=== PATIENT | male | born 1950 | race Caucasian/White ===

== ENCOUNTER 2016-10-20 10:16 | Day surgery (SDC) | payer MEDICARE, OTHER ==
[2016-10-16 15:30] VITALS: BMI 27.8
[~2016-10-20 10:16] MED LIST: LACTATED RINGERS 1,000 ML IV SCH
[2016-10-20 11:12] VITALS: RESP 18; TEMP 97.6
[2016-10-20] MEDS ORDERED: LACTATED RINGERS 1,000 ML IV ONE (11:12)
[2016-10-20] MEDS ORDERED: LIDOCAINE 1% 20 ML VIAL (10MG/ML) FOR IV START INTRADERMA ONE (11:12)
[2016-10-20] MEDS ORDERED: GLYCOPYRROLATE 0.2 MG/ML 2 ML VIAL ONE (11:41)
[2016-10-20] MEDS ORDERED: PROPOFOL 10 MG/ML 20 ML VIAL IV ONE (11:41)
[2016-10-20] MEDS ORDERED: LIDOCAINE 1% INJ 10MG/ML (20 ML MDV) ONE (11:41)
--- NOTE | 2016-10-20 12:07 | P.PCN ---
Date of Procedure: 10/20/16 Procedure(s) Performed: Brief history: Patient is a pleasant 66-year-old white male, scheduled for an elective upper endoscopy as well as colonoscopy as a part of evaluation of intermittent dysphagia to solids for the last several months duration. Also has prior history of colon polyps and hence he scheduled for a surveillance colonoscopy today. His last colonoscopy was in 2010. Procedure performed: Esophagogastroduodenoscopy with biopsy Colonoscopy Preoperative diagnosis: Intermittent dysphagia to solids Prior history of colon polyps Anesthesia: MAC Procedure: After informed consent was obtained from the patient was brought into the endoscopy unit and IV conscious sedation was administered by anesthesia under continuous monitoring. Initially upper endoscopy was done. The Olympus GF 160 video endoscope was inserted inserted into the mouth and esophagus intubated without any difficulty and was gradually advanced into the stomach and duodenum and carefully examined. The bulb and second part of the duodenum appeared normal. The scope was then withdrawn into the stomach adequately insufflated with air and upon careful examination the antrum had mild gastritis and biopsies were done from this area. The body, cardia and fundus appeared normal. The scope was then withdrawn into the esophagus. The GE junction was located at 40 cm to the incisors. It appeared rewith circumferential erythema and couple of erosions with one ulceration consistent with LA grade B reflux esophagitis. Rest of the esophagus appeared normal. Patient tolerated the procedure well. At this time the patient continued to remain sedation. Initial digital rectal examination was normal. Olympus CF 160 video colonoscope was then inserted into the rectum and gradually advanced to the cecum without any difficulty. Careful examination was performed as the scope was gradually being withdrawn. The prep was excellent. The cecum, ascending colon, transverse colon, descending colon, sigmoid colon and rectum appeared normal. Retroflexion was performed in the rectum and no lesions were noted. scattered sigmoid diverticulosis seen. Patient tolerated the procedure well. Impression: 1.Upper endoscopy revealed LA grade B reflux esophagitis, but no evidence of esophageal stricture. 2.Colonoscopy revealed scattered sigmoid diverticulosis but no evidence of colitis or colorectal neoplasia Recommendations: Findings of this examination were discussed with the patient as well ashis family. He was advised to follow with the biopsy results. He will be given a prescription for Prilosec 20 mg daily for reflux disease and he was briefly educated about antireflux measures. He can have a repeat surveillance colonoscopy in 5 years.
[2016-10-20 12:32] VITALS: BP 135/76; PULSE 56
== END 2016-10-20 13:16 | disposition home or self-care (01) ==
LOC: ORWHC2ENDO 10:16
PROVIDERS: ATTEND Internal Medicine Gastroenterology
DX: Z12.11 Encounter for screening for malignant neoplasm of colon (principal); Z86.010 Personal history of colon polyps; R13.10 Dysphagia, unspecified; K21.0 Gastro-esophageal reflux disease with esophagitis; K22.10 Ulcer of esophagus without bleeding; K57.30 Diverticulosis of large intestine without perforation or abscess without bleeding; K29.50 Unspecified chronic gastritis without bleeding; E78.5 Hyperlipidemia, unspecified; Z79.899 Other long term (current) drug therapy
CPT/HCPCS: 88305; 88342; 43239; J2001; J2704; G0105; 99153

== ENCOUNTER 2019-03-09 20:19 | Emergency (ER) | payer MEDICARE, OTHER ==
--- NOTE | 2019-03-09 20:49 | ED ---
Fall HPI - General Chief Complaint: Fall Stated Complaint: Fall Time Seen by Provider: 03/09/19 20:27 Source: patient Mode of arrival: ambulatory - History of Present Illness Initial Comments: 69-year-old male patient presents to the emergency department today for evaluation of right-sided chest wall pain after experiencing a fall. Patient states approximate hour half ago was playing Frisbee with his grandson when he fell forward landing on the right shoulder. Patient states he heard crunching in the right side of his chest and now has pain along the right sternal border a nd over the right lateral ribs. States the pain in his chest does increase when he takes a deep breath but denies any shortness of breath. Denies any hemoptysis. Patient states he is also having discomfort to the left hip. Denies any pain radiating down the leg. Denies any numbness or tingling to the extremities. Patient denies hitting his head or losing consciousness during the fall. Denies any neck or back pain. Patient denies any headache, chest pain, shortness of breath, dizziness, weakness, abdominal pain, nausea, vomiting, or difficulties with bowel movements or urination. - Related Data Home Medications Medication Instructions Recorded Confirmed Aspirin [Adult Low Dose Aspirin EC] 81 mg PO DAILY 10/16/16 10/16/16 Folic Acid (Unknown Dose) 1 tab PO DAILY 10/16/16 10/20/16 [place] 3 (Unknown Dose) 1 cap PO DAILY 10/16/16 10/20/16 Simvastatin [Zocor] 20 mg PO HS 10/16/16 10/20/16 Vitamin D 3 (Unknown Dose) 1 tab PO DAILY 10/16/16 10/20/16 Previous Rx's Medication Instructions Recorded Hydrocodone/Acetaminophen [Douglas 1 tab PO Q6HR PRN #12 tab 03/09/19 5-325] Ketorolac [Toradol] 10 mg PO Q6HR #12 tab 03/09/19 Lidocaine 5% Patch [Lidoderm] 1 patch TOPICAL DAILY #5 patch 03/09/19 Allergies Allergy/AdvReac Type Severity Reaction Status Date / Time No Known Allergies Allergy Verified 03/09/19 20:26 Review of Systems ROS Statement: Those systems with pertinent positive or pertinent negative responses have been documented in the HPI. ROS Other: All systems not noted in ROS Statement are negative. Past Medical History Past Medical History: Chest Pain / Angina, GERD/Reflux, Hyperlipidemia History of Any Multi-Drug Resistant Organisms: None Reported Past Surgical History: Heart Catheterization, Hernia Repair Additional Past Surgical History / Comment(s): MODIFIED TURP. , CATARACTS, COLONOSCOPY. Past Anesthesia/Blood Transfusion Reactions: No Reported Reaction Past Psychological History: No Psychological Hx Reported Smoking Status: Never smoker Past Alcohol Use History: Daily Past Drug Use History: None Reported - Past Family History Mother Family Medical History: Cancer Additional Family Medical History / Comment(s): UTERINE CA Brother(s) Family Medical History: Cancer Additional Family Medical History / Comment(s): PROSTATE CA General Exam Limitations: no limitations General appearance: alert, in no apparent distress, other (Physical well- developed, well-nourished elderly male patient in no acute distress. Vital signs upon presentation are temperature 97.6F, pulse 75, respirations 16, blood pressure 163/90, pulse ox 97% on room air.) Head exam: Present: atraumatic, normocephalic, normal inspection Eye exam: Present: normal appearance, PERRL, EOMI. Absent: scleral icterus, conjunctival injection, periorbital swelling ENT exam: Present: normal exam, normal oropharynx, mucous membranes moist Neck exam: Present: normal inspection, full ROM, other (Nontender, no step-off, no deformity to firm midline palpation of the posterior cervical spine. Full range of motion without pain or limitation.). Absent: tenderness, meningismus, lymphadenopathy Respiratory exam: Present: normal lung sounds bilaterally. Absent: respiratory distress, wheezes, rales, rhonchi, stridor Cardiovascular Exam: Present: regular rate, normal rhythm, normal heart sounds. Absent: systolic murmur, diastolic murmur, rubs, gallop, clicks GI/Abdominal exam: Present: soft, normal bowel sounds. Absent: distended, tenderness, guarding, rebound, rigid Extremities exam: Present: normal inspection, full ROM, normal capillary refill, other (Skin to the lower extremities is pink, warm, and dry. Cap refills less than 3 seconds. Pedal and posttibial pulses are 2+ and equal bilaterally.). Absent: tenderness, pedal edema, joint swelling, calf tenderness Back exam: Present: normal inspection, other (Nontender, no step-off, no deformity to firm midline palpation of the thoracic and lumbar vertebrae. Full range of motion without pain or limitation.). Absent: vertebral tenderness Neurological exam: Present: alert, oriented X3, CN II-XII intact Psychiatric exam: Present: normal affect, normal mood Skin exam: Present: warm, dry, intact, normal color. Absent: rash Course Vital Signs 03/09/19 03/09/19 20:24 21:52 Temperature 97.6 F 99.1 F Pulse Rate 75 71 Respiratory 16 18 Rate Blood Pressure 163/90 155/97 O2 Sat by Pulse 97 97 Oximetry Medical Decision Making - Medical Decision Making 69-year-old male patient presents the emergency department today for evaluation of right rib pain and pain at the right sternal border after experiencing a fall while playing Frisbee with his grandchildren. Patient is also reporting discomfort to the left hip however he is able to ambulate. Physical examination did reveal right sternal border tenderness and right lateral rib tenderness. Lungs are clear to auscultation with good air movement. Neurovascular status is intact to the lower extremities. X-rays of the right ribs and one view of the chest was obtained and showed subtle nondisplaced fractures of ribs #7 and 8. X-ray of the left hip and pelvis was obtained and showed no acute fractures or dislocations however did reveal a sclerotic lesion to the left pubic bone. I did discuss these findings and results with the patient. We did discuss splinting, coughing, deep breathing with the rib fractures. We discussed risk of pneumonia. I did inform patient of the sclerotic lesion on the pelvic bone, he is instructed to follow-up with his primary care physician for further evaluation of this lesion. He was given medications for pain control. He is instructed to follow-up with his primary care physician for recheck in 1-2 days. Return parameters were discussed in detail. He verbalizes understanding and agrees with this plan - Radiology Data Radiology results: report reviewed, image reviewed Single view of the pelvis and 2 views of left hip are obtained. Report was reviewed in its entirety. Impression by Dr. Chung shows no fracture dislocation the pelvis or left hip. Sclerotic lesion of the left pubic bone that is concerning for metastasis given his large evaluated margins. Correlate with PSA and nuclear medicine bone scan is alternatively this could represent an atypical bone island. Right rib and chest x-rays obtained. Report was reviewed in its entirety. Impression by Dr. Chung shows subtle nondisplaced fracture of the anterior lateral margin of rib 8 on the right and 7 on the right. Otherwise no acute cardiopulmonary process. Disposition Clinical Impression: Right rib fracture, Lesion of pelvic bone Disposition: HOME SELF-CARE Condition: Good Instructions (If sedation given, give patient instructions): How to Use an Incentive Spirometer (ED), Rib Fracture (ED) Additional Instructions: Splint ribs with pillow for coughing and deep breathing. Use incentive spirometer 10 times an hour while awake. Take medication as directed. Follow-up with your primary care physician for recheck in 1-2 days. Discuss abnormal pelvic xray findings, abnormal lesion to the pelvic bone. Return to the emergency department immediately for any new, worsening, or concerning symptoms. Prescriptions: Lidocaine 5% Patch [Lidoderm] 1 patch TOPICAL DAILY #5 patch Hydrocodone/Acetaminophen [Douglas 5-325] 1 tab PO Q6HR PRN #12 tab PRN Reason: Pain Ketorolac [Toradol] 10 mg PO Q6HR #12 tab Is patient prescribed a controlled substance at d/c from ED?: Yes When asked, does pt state using other controlled substances?: No If prescribed controlled substance>3 days was MAPS reviewed?: Prescribed <3 Days If opioid is for acute pain is fill amount 7 days or less?: Yes If Rx opioid, was Start Talking consent form obtained?: Yes [facility]errals[facility] [Primary Care Provider] - 1-2 days Time of Disposition: 21:30
--- NOTE | 2019-03-09 20:56 | XR ---
EXAMINATION TYPE: XR Hip LT and AP Pelvis DATE OF EXAM: 03/09/2019 COMPARISON: NONE HISTORY: Left hip pain and pelvic pain after fall TECHNIQUE: A single AP view of the pelvis is obtained. Two views of the left hip are obtained. FINDINGS: There is no acute fracture/dislocation evident in the pelvis. The hip and sacroiliac join ts appear symmetric and unremarkable. The overlying soft tissue appears unremarkable. Two views of left hip show no acute fracture or dislocation. No focal lytic or sclerotic lesion seen in the proximal left femur. The overlying soft tissue is unremarkable. There is a lobulated lesion that is sclerotic of the left pubic bone measuring 2 cm. There is a levoscoliosis of the lower lumba r and lumbosacral spine partially visualized. IMPRESSION: 1. No acute fracture or dislocation in the pelvis or left hip. 2. Sclerotic lesion of the left pubic bone that is concerning for metastasis given its large evaluate d margins. Correlate with PSA and nuclear medicine bone scan as alternatively this could represent an atypical bone island.
--- NOTE | 2019-03-09 20:57 | XR ---
EXAMINATION TYPE: XR ribs RT w pa chest xray DATE OF EXAM: 03/09/2019 CLINICAL HISTORY: Right rib and chest pain after fall TECHNIQUE: Single frontal view of the chest is obtained. Frontal and oblique views of the right ribs were also obtained. COMPARISON: 06/17/2016 FINDINGS: There is no focal air space opacity, pleural effusion, or pneumothorax seen. The cardiac silhouette size is within normal limits. Tortuosity of the descending thoracic aorta is similar to the prior exam. Tortuosity of the ascending thoracic aorta is also similar to the prior. Mild to mode rate acromioclavicular arthropathy is seen as small marginal osteophytes and capsular hypertrophy. Th ere are subtle nondisplaced fractures of the anterior lateral margins of ribs 7 and 8 on the right th at are noncomminuted. These appear acute. Scoliosis is partially visualized of the thoracolumbar spin e. IMPRESSION: Subtle nondisplaced fracture of the anterior lateral margin of rib 8 on the right and 7 o n the right. Otherwise no acute cardiopulmonary process.
[2019-03-09] MEDS ORDERED: LIDOCAINE 5% PATCH TOPICAL STA (21:13)
[2019-03-09] MEDS ORDERED: ACET/COD 300 MG/30 MG STARTER PACK 6 TAB BTL PO STA (21:38)
[2019-03-09 21:53] VITALS: BP 155/97; PULSE 71; RESP 18; TEMP 99.1
== END 2019-03-09 21:52 | disposition home or self-care (01) ==
LOC: EC 20:19
DX: S22.41XA Multiple fractures of ribs, right side, initial encounter for closed fracture (principal); M89.9 Disorder of bone, unspecified; E78.5 Hyperlipidemia, unspecified; Z95.818 Presence of other cardiac implants and grafts; Z79.82 Long term (current) use of aspirin; Z79.899 Other long term (current) drug therapy; W01.0XXA Fall on same level from slipping, tripping and stumbling without subsequent striking against object, initial encounter; Y93.74 Activity, frisbee; Y92.89 Other specified places as the place of occurrence of the external cause
CPT/HCPCS: 73502; 99283

== ENCOUNTER → 2019-03-20 | Outpatient (CLI) | payer MEDICARE ==
--- NOTE | 2019-03-20 13:14 | MR ---
EXAMINATION TYPE: MR pelvis wo/w con DATE OF EXAM: 03/20/2019 COMPARISON: X-ray -19 HISTORY: Abn finding/ Sclerotic lesion, left pubic bone CONTRAST: Standard multiplanar, multisequence MRI departmental protocol utilizing 9 mL intravenous Gadavist natalie olinium contrast. FINDINGS: 1. There is a dense sclerotic lesion involving the left pubic symphysis. There is a smaller sclerotic density involving the upper margin of the L5 vertebral body. There is degenerative change of the meryl tebral body. There is mild concentric narrowing of the hip joints bilaterally. There is no abnormal enhancement. No soft tissue mass. No adenopathy noted. Prostate gland does appea r to be enlarged and somewhat heterogeneous. Correlate with PSA IMPRESSION: Sclerotic density involving the left pubic symphysis and L5 segments are nonspecific. There is no enh ancement or soft tissue mass. No destructive changes. In the absence of a history of malignancy this most likely related to bone island. However, A nuclear medicine bone scan is suggested which based on the intensity should give a good indication whether this is related to a bone island (mildly increas ed uptake) or suspicious for aggressive bone lesion (intensely increased uptake). Prostate gland appears to be enlarged and heterogeneous correlate with PSA.
== END | disposition home or self-care (01) ==
LOC: RADMRIMAIN 11:55
PROVIDERS: ATTEND Family Medicine
DX: R93.7 Abnormal findings on diagnostic imaging of other parts of musculoskeletal system (principal)
CPT/HCPCS: 72197; A9585

== ENCOUNTER → 2019-03-25 | Outpatient (CLI) | payer MEDICARE ==
--- NOTE | 2019-03-25 15:22 | NM ---
EXAMINATION TYPE: NM bone scan whole body DATE OF EXAM: 03/25/2019 COMPARISON: Chest x-ray with right rib x-ray March 09, 2019 HISTORY: Low back pain per order. Fall injury 2 weeks ago Delayed whole-body scanning was performed following the injection of 23.2 mCi Tc 99m MDP. Images acq uired 4 hours post injection. Whole body anterior and posterior projection as well as multiple projec tions of the thorax abdomen and pelvis. FINDINGS: There is focal radiotracer uptake involving anterolateral right sixth through eighth ribs consistent with product of acute fractures. There is redemonstration of dextroconvex scoliosis with some increase uptake left L1-L2 level at area of peak curvature consistent with focal degenerative change. No suspicious radiotracer uptake to sug gest radiooccult fracture is otherwise seen. Normal excretion is noted. Mild symmetric uptake both knee joints is felt to reflect product of degen erative change. Some increased uptake paranasal level could reflect product of sinusitis, correlate c linically. IMPRESSION: As above.
== END | disposition home or self-care (01) ==
LOC: RADNMMAIN 10:14
PROVIDERS: ATTEND Family Medicine
DX: S22.41XA Multiple fractures of ribs, right side, initial encounter for closed fracture (principal); M41.86 Other forms of scoliosis, lumbar region; M47.816 Spondylosis without myelopathy or radiculopathy, lumbar region; M17.0 Bilateral primary osteoarthritis of knee
CPT/HCPCS: 78306; A9503

== ENCOUNTER → 2019-08-14 | Outpatient (CLI) | payer MEDICARE ==
--- NOTE | 2019-08-14 22:43 | MR ---
EXAMINATION TYPE: MR MRCP DATE OF EXAM: 08/14/2019 COMPARISON: None. HISTORY: Abd pain Standard multiplanar, multisequence MRI departmental protocol Multiplanar, multisequence images of the abdomen were acquired. Thin and thick slice MRCP imaging is performed on MRI scanner. FINDINGS: LIVER/GALLBLADDER/PANCREAS/BILIARY SYSTEM:, Gallbladder is within normal limits without intraluminal calculi. Liver is normal in size without concerning solid or cystic mass. Tiny thin-walled cyst hepat ic dome coronal image 15 noted. Pancreas normal in size with thin-walled 6 mm cyst or cystic lesion m id body coronal image 17 and confirmed axial image 26 series 601. Pancreatic duct is nondilated. Ther e is no suspicious extrahepatic or intrahepatic biliary dilatation. OTHER: Spleen is normal in size with nonspecific subcentimeter T2 hyperintense foci. There are darlyn us central parapelvic cysts in both kidneys larger in size in the left kidney. There is dextroconvex scoliosis centered at L1-L2 level with moderate multilevel spurring in the spine. No suspicious bowel dilatation. No abdominal ascites. No greater than 1 cm abdominal adenopathy. IMPRESSION: No biliary or pancreatic ductal dilatation. Nonspecific 6 mm thin-walled cyst or cystic l esion central body of pancreas favored benign. Consider MRI/MRCP follow-up in 6-12 months time to doc ument stability. Nonspecific subcentimeter splenic lesions. Scoliosis and degenerative change in the spine.
== END | disposition home or self-care (01) ==
LOC: RADMRIMAIN 15:57
PROVIDERS: ATTEND Internal Medicine Hematology & Oncology
DX: D73.89 Other diseases of spleen (principal)
CPT/HCPCS: 74181

== ENCOUNTER → 2020-03-30 | Outpatient (CLI) | payer MEDICARE ==
--- NOTE | 2020-03-31 12:02 | MR ---
EXAMINATION TYPE: MR MRCP DATE OF EXAM: 03/30/2020 COMPARISON: Prior MRCP August 14, 2019. HISTORY: Cyst of pancreas Standard multiplanar, multisequence MRI departmental protocol Multiplanar, multisequence images of the abdomen focusing on pancreas were acquired. Thin and thick s lice MRCP. FINDINGS: LIVER/GALLBLADDER/PANCREAS/BILIARY SYSTEM:, Gallbladder remains within normal limits without intralum inal calculi or surrounding inflammatory change. Liver remains normal in size without concerning bernardo d or cystic mass or significant fatty infiltration. A 2 to 3 mm punctate thin-walled cyst hepatic dom e coronal image 17 incidentally redemonstrated. Pancreas remains normal in size with stable thin-wall ed 6 mm cyst or cystic lesion mid body coronal image 20 and confirmed axial image 29 series 501. MRCP imaging redemonstrates nondilated Pancreatic duct. Thin-walled cyst or cystic lesion shows no defini tive communication to adjacent main pancreatic duct or visualized side branch. There is no suspicious extrahepatic or intrahepatic biliary dilatation. No new suspicious pancreatic lesions are identified . OTHER: Spleen is normal in size with redemonstration of nonspecific subcentimeter slightly T2 hyperin tense foci largest anteriorly axial image 33 series 501, no significant change from prior suggesting benign etiology. There are numerous central parapelvic cysts in both kidneys larger in size in the left kidney redemon strated. There is persistent dextroconvex scoliosis centered at L2 level with moderate multilevel spurring in the spine redemonstrated. No suspicious bowel dilatation. No abdominal ascites. No greater than 1 cm abdominal adenopathy. Lung bases remain clear. IMPRESSION: Stable 6 mm thin-walled cyst or cystic lesion central body of pancreas. Etiology uncertai n but findings favored benign. Consider follow-up MRI in one year time to document greater than one-y ear stability.
== END | disposition home or self-care (01) ==
LOC: RADMRIMAIN 16:39
PROVIDERS: ATTEND Internal Medicine Hematology & Oncology
DX: K86.2 Cyst of pancreas (principal)
CPT/HCPCS: 74181

== ENCOUNTER → 2021-03-19 | Outpatient (CLI) | payer MEDICARE ==
--- NOTE | 2021-03-19 16:29 | MR ---
EXAMINATION TYPE: MR MRCP DATE OF EXAM: 03/19/2021 COMPARISON: 03/30/2020 HISTORY: Pancreatic cyst. Multiplanar multiecho imaging of the abdomen was performed with no contrast. There are MRCP images. Liver shows no focal defect. The bile ducts are not dilated. Gallbladder appears normal. There are mu ltiple cysts in the spleen that measure up to 15 mm. There is a 6 mm cyst in the inferior body of the pancreas. Unchanged. There is no adrenal mass. There are multiple bilateral renal parapelvic cysts. There is no hydronephr osis. There is no sign of retroperitoneal adenopathy. The pancreatic duct appears normal. There is no pleural effusion. There is no evidence of ascites. There is good visualization of the biliary tree. Bile ducts are not dilated. There is no evidence of a stricture. There is no evidence of filling defect. IMPRESSION: There is normal-appearing pancreatic duct and biliary tree. No evidence of ductal obstruction. Small simple cyst in the pancreas not significantly different than old exam. Multiple renal parapelvic cysts unchanged.
== END | disposition home or self-care (01) ==
LOC: RADMRIMAIN 08:13
PROVIDERS: ATTEND Internal Medicine Hematology & Oncology
DX: K86.2 Cyst of pancreas (principal); N28.1 Cyst of kidney, acquired
CPT/HCPCS: 74181

== ENCOUNTER → 2021-06-23 | Outpatient (CLI) | payer MEDICARE ==
[2021-06-23 18:53] LABS: HCT 45.3 % (39.6-50.0); MCH 31.6 pg (27.0-32.0); MCHC 33.1 g/dL (32.0-37.0); MCV 95.6 fL (80.0-97.0); Mean Platelet Volume 10.1 fL (9.5-12.2); Platelet Count 237 X 10*3/uL (140-440); RBC 4.74 X 10*6/uL (4.40-5.60); RDW 13.2 % (11.5-14.5); WBC 6.22 X 10*3/uL (4.50-10.00)
[2021-06-24 05:13] LABS: African American GFR (CKD) 86.2 (60.0-200.0); Albumin 4.4 g/dL (3.80-4.90); Albumin/Globulin Ratio 2.2 (1.60-3.17); Anion Gap 10.9 mmol/L (4.00-12.00); Calcium 9.2 mg/dL (8.7-10.3); Carbon Dioxide 23.1 mmol/L (21.6-31.8); Magnesium 1.9 mg/dL (1.5-2.4); Non-African American GFR(CKD) 74.3 (60.0-200.0); Potassium 4.6 mmol/L (3.5-5.5); Total Bilirubin 0.6 mg/dL (0.2-1.2); Total Protein 6.4 g/dL (6.2-8.2)
== END | disposition home or self-care (01) ==
LOC: LABT 12:30
PROVIDERS: ATTEND Nurse Practitioner Adult Health
DX: I49.3 Ventricular premature depolarization (principal); E78.5 Hyperlipidemia, unspecified; R53.83 Other fatigue
CPT/HCPCS: 36415; 80053; 83735; 84443; 84481; 85027

== ENCOUNTER → 2022-03-14 | Outpatient (CLI) | payer MEDICARE ==
--- NOTE | 2022-03-15 05:25 | MR ---
EXAMINATION TYPE: MR MRCP DATE OF EXAM: 03/14/2022 COMPARISON: 03/19/2021 HISTORY: Pancreatic Cyst, follow up Multiplanar multiecho imaging of the abdomen without contrast. There are MRCP images. There is no ple ural effusion. Heart is borderline enlarged. No focal liver defect. Gallbladder appears normal. The b ile ducts are not dilated. Pancreatic duct appears normal. The spleen shows multiple cysts. There is 6.5 mm simple appearing cyst in the body of the pancreas on the inferior aspect. There are multiple renal parapelvic cysts. No hydronephrosis. No retroperitoneal adenopathy. There is no ascites. No evidence of a bowel obstruction. Intrahepatic and extrahepatic bile ducts appear normal. No dilation. No evidence of a filling defect. The pancreatic duct appears normal. No evidence of solid pancreatic mass. IMPRESSION: Normal pancreatic duct and normal biliary tree. Normal gallbladder. No evidence of a calculus. Small cyst in the body of the pancreas without change compared to old exam.
== END | disposition home or self-care (01) ==
LOC: RADMRIMAIN 08:54
PROVIDERS: ATTEND Internal Medicine Hematology & Oncology
DX: K86.2 Cyst of pancreas (principal)
CPT/HCPCS: 74181

== ENCOUNTER 2022-09-06 09:13 | Day surgery (SDC) | payer MEDICARE ==
[2022-08-30 11:35] VITALS: BMI 26.4
[~2022-09-06 09:13] MED LIST changes: +LIDOCAINE 1% (10MG/ML) FOR IV START INTRADERMA PRN
[2022-09-06 09:38] VITALS: RESP 16; TEMP 97.8
[2022-09-06] MEDS ORDERED: LIDOCAINE 2% INJ 20 MG/ML (2 ML VIAL) ONE (10:15)
[2022-09-06] MEDS ORDERED: PROPOFOL 10 MG/ML 20 ML VIAL IV ONE (10:15)
--- NOTE | 2022-09-06 10:30 | P.PCN ---
Date of Procedure: 09/06/22 Procedure(s) Performed: BRIEF HISTORY: Patient is a 72-year-old pleasant white male scheduled for an elective colonoscopy as a part of evaluation prior history of colon polyps. PROCEDURE PERFORMED: Colonoscopy. PREOPERATIVE DIAGNOSIS: 3 of colon polyps. IV sedation per Anesthesia. PROCEDURE: After informed consent was obtained, the patient, was brought into the endoscopy unit. IV sedation was administered by Anesthesia under continuous monitoring. Digital rectal examination was normal. Initially the Olympus CF-160 flexible video colonoscope was then inserted in the rectum, gradually advanced into the cecum without any difficulty. Careful examination was performed as the scope was gradually being withdrawn. Ileocecal valve and the appendiceal orifice were visualized and appeared normal. Prep was excellent. Mucosa of the cecum, ascending colon, transverse colon, descending colon, sigmoid colon, and rectum appeared normal. Retroflexion was performed in the rectum and no lesions were seen. Scattered sigmoid diverticulosis. The patient tolerated the procedure well. IMPRESSION: Normal-appearing colon from rectum to cecum with no evidence of colorectal neoplasia . Scattered sigmoid diverticulosis. RECOMMENDATIONS: Findings of this examination were discussed with the patient is a family. He was advised to have a repeat colonoscopy in 5 years because of the prior history of colon polyps.
[2022-09-06 10:40] VITALS: BP 138/88; PULSE 78
== END 2022-09-06 11:31 | disposition home or self-care (01) ==
LOC: ORWHC2ENDO 09:13
PROVIDERS: ATTEND Internal Medicine Gastroenterology
DX: Z12.11 Encounter for screening for malignant neoplasm of colon (principal); K57.30 Diverticulosis of large intestine without perforation or abscess without bleeding; K63.5 Polyp of colon
CPT/HCPCS: J2704; J2001; G0105; 45378

== ENCOUNTER → 2023-03-19 | Outpatient (CLI) | payer MEDICARE ==
--- NOTE | 2023-03-19 09:13 | MR ---
MR MRCP INDICATION: Patient age:Male; 73 years old; Reason for study: K86.2 Pancreatic cyst; [facility]. COMPARISON: Multiple MRCPs with most recent 03/14/2022. TECHNIQUE: Multiplanar, multisequence images of the abdomen focusing on pancreas were acquired. Thin and thick slice MRCP. No gadolinium was administered. FINDINGS: LIVER/GALLBLADDER/PANCREAS/BILIARY SYSTEM:, Gallbladder remains within normal limits without intralum inal calculi or surrounding inflammatory change. Liver remains normal in size without concerning bernardo d or cystic mass or significant fatty infiltration. A 3 mm punctate thin-walled cyst hepatic dome inc identally redemonstrated. Pancreas remains normal in size with stable thin-walled 6 mm cyst or cystic lesion mid body coronal i mage 20. No mural nodularity identified. MRCP imaging redemonstrates nondilated pancreatic duct. Thin -walled cyst or cystic lesion shows no definitive communication to adjacent main pancreatic duct or v isualized side branch. There is no suspicious extrahepatic or intrahepatic biliary dilatation. No new suspicious pancreatic lesions are identified. OTHER: Spleen is normal in size with redemonstration of nonspecific subcentimeter slightly T2 hyperin tense foci. No significant change from prior suggesting benign etiology. There are numerous central p arapelvic cysts in both kidneys larger in size in the left kidney redemonstrated. There is persistent dextroconvex scoliosis centered at L2 level with moderate multilevel spurring in the spine redemonst rated. Small fat filled umbilical hernia. No suspicious bowel dilatation. No abdominal ascites. No gr eater than 1 cm abdominal adenopathy. Lung bases remain clear. IMPRESSION: Stable 6 mm thin-walled cyst or cystic lesion central body of pancreas dating back to 08/14/2019. Etiology again is uncertain and could represent a sidebranch IPMN versus pseudocyst however n o side branch is identified. No high stigmata or worrisome features.
== END | disposition home or self-care (01) ==
LOC: RADMRIMAIN 07:57
PROVIDERS: ATTEND Internal Medicine Hematology & Oncology
DX: K86.2 Cyst of pancreas (principal)
CPT/HCPCS: 74181

== ENCOUNTER → 2024-03-10 | Outpatient (CLI) | payer MEDICARE ==
--- NOTE | 2024-03-10 09:26 | MR ---
EXAMINATION TYPE: MR MRCP DATE OF EXAM: 03/10/2024 9:09 AM CLINICAL INDICATION:Male, 74 years old with history of K86.2 CYST OF PANCREAS; , [facility] COMPARISON: 03/19/2023 and dating back to 2019. TECHNIQUE: Multi planar, T2-weighted imaging with and without fat saturation and chemical shift imag ing was performed of the abdomen. Then, heavily T2 weighted imaging (half-Fourier acquisition single- shot turbo spin-echo) was utilized in order to study the biliary system. Maximum intensity projectio n images were reconstructed from the original data of the biliary tree. 3D images were created on [employer] work station. No Gadolinium given. FINDINGS: LIVER/GALLBLADDER/PANCREAS/BILIARY SYSTEM: Normal appearance of the gallbladder. Liver is within normal limits for size. No evidence for solid or cystic mass or significant fatty inf iltration. Stable 3 mm punctate thin-walled cyst hepatic dome incidentally redemonstrated. Pancreas is within normal limits for size. Stable thin-walled 6 mm cyst or cystic lesion mid body cor onal . No mural nodularity identified. MRCP imaging redemonstrates nondilated pancreatic duct. The th in-walled cystic does not demonstrate communication to adjacent main pancreatic duct or visualized si de branch. There is no suspicious extrahepatic or intrahepatic biliary dilatation. No new suspicious pancreatic lesions are identified. OTHER: Spleen is normal in size with redemonstration of nonspecific subcentimeter slightly T2 hyperin tense foci scattered throughout which are not significantly changed. No significant change from prior suggesting benign etiology. Redemonstration of peripelvic renal cysts bilaterally. There is persiste nt dextroconvex scoliosis centered at L2 level with moderate multilevel spurring in the spine redemon strated. Small fat filled umbilical hernia. No suspicious bowel dilatation. No abdominal ascites. No greater than 1 cm abdominal adenopathy. Lung bases remain clear. IMPRESSION: Stable pancreatic body 6 mm thin-walled cystic lesion dating back to 08/14/2019. Etiology again is unc ertain and could represent a sidebranch IPMN versus pseudocyst however no side branch is identified.
== END | disposition home or self-care (01) ==
LOC: RADMRIMAIN 07:56
PROVIDERS: ATTEND Internal Medicine Hematology & Oncology
DX: K86.2 Cyst of pancreas (principal)
CPT/HCPCS: 74181

== ENCOUNTER → 2025-04-24 | Outpatient (CLI) | payer MEDICARE ==
[2025-04-24 15:32] LABS: ALT 23 U/L (10-49); AST 25 U/L (14-35); Albumin 4.3 g/dL (3.8-4.9); Albumin/Globulin Ratio 2.26 Ratio (1.60-3.17); Alkaline Phosphatase 65 U/L (41-126); Anion Gap 8.90 mmol/L (4.00-12.00); BUN/Creat Ratio 17.89 Ratio (12.00-20.00); Blood Urea Nitrogen 16.1 mg/dL (9.0-27.0); Calcium 9.1 mg/dL (8.7-10.3); Carbon Dioxide 27.1 mmol/L (21.6-31.8); Chloride 107 mmol/L (96-109); Globulin 1.9 g/dL (1.6-3.3); Glucose 105 mg/dL (70-110); Magnesium 2.0 mg/dL (1.5-2.4); Potassium 4.2 mmol/L (3.5-5.5); Sodium 143 mmol/L (135-145); Total Protein 6.2 g/dL (6.2-8.2)
== END | disposition home or self-care (01) ==
LOC: LABWHC1 10:54
PROVIDERS: ATTEND Nurse Practitioner Adult Health
DX: I49.3 Ventricular premature depolarization (principal)
CPT/HCPCS: 36415; 80053; 83735; 84443

== ENCOUNTER → 2025-04-27 | Outpatient (CLI) | payer MEDICARE ==
[2025-04-27 10:48] LABS: HCT 45.3 % (39.6-50.0); HGB 14.9 g/dL (13.0-17.0); MCH 31.5 pg (27.0-32.0); MCHC 32.9 g/dL (32.0-37.0); MCV 95.8 FL (80.0-97.0); NRBC Per 100 WBC 0 X 10*3/uL (0.00-0.01); Platelet Count 225 X 10*3/uL (140-440); RBC 4.73 X 10*6/uL (4.40-5.60); RDW 13.4 % (11.5-14.5); WBC 6.00 X 10*3/uL (4.50-10.00)
[2025-04-27 11:16] LABS: Anion Gap 9.50 mmol/L (4.00-12.00); Blood Urea Nitrogen 17.6 mg/dL (9.0-27.0); Carbon Dioxide 27.5 mmol/L (21.6-31.8); Chloride 105 mmol/L (96-109); Potassium 4.3 mmol/L (3.5-5.5); Sodium 142 mmol/L (135-145)
== END | disposition home or self-care (01) ==
LOC: LABWHC1 08:10
PROVIDERS: ATTEND Internal Medicine Clinical Cardiac Electrophysiology
DX: Z01.812 Encounter for preprocedural laboratory examination (principal); I47.29 Other ventricular tachycardia
CPT/HCPCS: 80051; 82565; 84520; 85027

== ENCOUNTER → 2025-04-29 | Day surgery (SDC) | payer MEDICARE ==
[2025-04-27 09:28] VITALS: BMI 26.4
[~2025-04-29] MED LIST changes: +ALPRAZolam 0.25 MG TAB PO PRN; +ALPRAZolam 0.5 MG TAB PO PRN; +ASPIRIN 325 MG TAB PO STA; +ATORVASTATIN 80 MG TAB PO STA; +HEPARIN SODIUM,PORCINE (1 ML) 2,500 UNIT in SODIUM CHLORIDE 0.9% 250 ML IRRIGATION PRN; +HEPARIN SODIUM,PORCINE 10,000 UNIT in SODIUM CHLORIDE 0.9% 1,000 ML IRRIGATION PRN; -LACTATED RINGERS 1,000 ML IV SCH; -LIDOCAINE 1% (10MG/ML) FOR IV START INTRADERMA PRN; +NITROGLYCERIN SL TABS 0.4 MG TAB SUBLINGUAL PRN; +SODIUM CHLORIDE 0.9% 1,000 ML in EMPTY BAG 1 BAG IV SCH
[2025-04-29] MEDS: IV FLUID CONTINUATION 1,000 ML IV ONE (09:43)
[2025-04-29 09:51] VITALS: BP 128/90; PULSE 71; RESP 16; TEMP 98.2
[2025-04-29] MEDS: MIDAZOLAM 2 MG/2 ML VIAL IVP ONE (10:15)
[2025-04-29] MEDS: fentaNYL (PF) 50 MCG/1 ML VIAL IVP ONE (10:15)
[2025-04-29] MEDS: LIDOCAINE 2% (PF) 20 MG/ML 10 ML AMP SQ ONE (10:15)
[2025-04-29] MEDS: HEPARIN SODIUM 1,000 UN/ML (10ML VL) IVP ONE (10:24)
[2025-04-29] MEDS: HEPARIN SODIUM,PORCINE (1 ML) 2,500 UNIT in SODIUM CHLORIDE 0.9% 250 ML IRRIGATION ONE (10:39)
[2025-04-29] MEDS: HEPARIN SODIUM,PORCINE 10,000 UNIT in SODIUM CHLORIDE 0.9% 1,000 ML IRRIGATION ONE (10:39)
[2025-04-29] MEDS: IOPAMIDOL-370 100ML BTL INTRATHECA ONE (10:39)
--- NOTE | 2025-04-29 13:05 | P.CARDCATH ---
Date of Procedure: 04/29/25 Description of Procedure: DIAGNOSTIC CORONARY ANGIOGRAPHY and LEFT HEART CATH REPORT PROCEDURES PERFORMED: Left heart catheterization Selective coronary angiography Moderate conscious sedation 22 mins Right radial access INDICATION: Frequent nonsustained ventricular tachycardia BRIEF HPI: 75-year-old sees Dr. Smallwood because of palpitations. Holter monitor showed 5% PVC burden with frequent episodes of long runs of NSVT. He underwent a nuclear stress test which was nonischemic however because of frequent NSVT's he was scheduled for a heart catheterization procedure. CONSENT: I have explained the procedural steps of above-mentioned procedures in layman's terms to the patient. I discussed the risks (including but not limited to stroke, emergent vascular or cardiac surgery or ), benefits and alternative therapies for the above-mentioned procedure. I discussed the risks of sedation/analgesia and blood product administration (if indicated). The patient has indicated understanding and acceptance of these risks. Conscious Sedation: Patient's ECG, heart rate, blood pressure, pulse oximetry were monitored throughout the duration of procedure under my direct supervision. 1 mg Versed and 50 mcg Fentanyl were used for induction of moderate conscious sedation. Total duration of moderate concious sedation 22 minutes. PROCEDURAL DETAILS: Patient was prepped and draped in sterile fashion. 1% lidocaine was infiltrated over the right radial artery. Right radial access was obtained via modified seldinger technique. Medications: 5mg of verapamil was administed in the radial sheet. 5500 Units of Heparin was administed once the catheter reached the aortic root Wires and Catheter used: J wire was advanced under fluroscopy to get to aortic root. 5 korean JR 4 diagnostic catheter was utilized obtain left ventricular pressure and pressure gradint across aortic valve. 5 korean JR 4 diagnostic catheter was used to selectively engage the right coronary ostium. 5 korean JL 3.5 diagnostic catheter was utilized to selectively engage the left coronary ostium. Angiographic images were reviewed in detail. Catheter and wire were removed. Radial sheet was flushed. The right radial sheath was removed and a TR band was placed. Patent hemostasis was achieved. The patient tolerated the procedure well. Patient was transported back to the post catheterization holding area in stable condition. TECHNICAL DETAILS Total radiation: 255 mGy Total fluro time: 2.1 minutes Total contrast used: Isovue [60 ml] Complications: [none] Estimated Blood loss: less than 15 ml HEMODYNAMICS: Aortic Pressure: 110/60 mmHg. LV pressure: 110/1 mmHg. LVEDP 9 mmHg. There was no significant gradient across the aortic valve. SELECTIVE CORONARY ARTERIOGRAPHY: LEFT MAIN: The left main is short and large caliber vessel. It bifurcates into the LAD and circumflex. Left main appears angiographically normal. LEFT ANTERIOR DESCENDING CORONARY ARTERY: Ostial LAD appears to have 50% disease. Proximal LAD appears angiographically patent. Mid and distal LAD appears angiographically patent. Mid LAD gives rise to a long but small caliber diagonal 1. Mid midportion of diagonal 1 has 50% disease. It is a 1.75mm to 2 mm vessel. LEFT CIRCUMFLEX CORONARY ARTERY: It is nondominant vessel. Proximal LCx has mild luminal irregularities. Proximal LCx gives rise to 1.75 mm caliber OM1 which is long vessel and appears patent. Just after giving OM1, mid LCx beds and a small caliber but long OM 2 and small caliber AV groove branch. They appear patent with mild luminal irregularities. RIGHT CORONARY ARTERY: Dominant vessel. Proximal mid and distal RCA appears angiographically patent with minimal luminal irregularities. Distally RCA bifurcates into PDA and PL branch which are moderate caliber and appears angiographically patent IMPRESSION: 50% ostial LAD disease 50% mid diagonal 1 disease, small caliber 1.75 to 2 mm vessel Minimal luminal irregularities in RCA Normal LVEDP PLAN: As stress test was normal and, ostial LAD stenosis does not appear significant, would recommend medical management for CAD with aspirin and high intensity statin. This does not explain patient's nonsustained ventricular tachycardia. 125 cc/h for 4 hours of normal saline Discharge home in 4 hours Follow-up with Dr. Smallwood 1 week Performing Physician Nj Ledezma MD, FACC, RPVI Thank you for allowing [facility] to participate in this patient's care. Feel free to reach out in case of any followup questions.
== END ==
LOC: CATHCVL 09:13
PROVIDERS: ATTEND Student in an Organized Health Care Education/Training Program
DX: I25.10 Atherosclerotic heart disease of native coronary artery without angina pectoris (principal); I47.20 Ventricular tachycardia, unspecified; I49.3 Ventricular premature depolarization; Z79.899 Other long term (current) drug therapy
CPT/HCPCS: 93458; 99152; C1769 ×2; C1894; J2250; J1644 ×3; J2003; Q9967; J3010